=== PATIENT | male | born 1975 | race Caucasian/White ===

== ENCOUNTER → 2022-01-24 10:04 | Outpatient (BNVA) | payer OTHER, SELFPAY | PROVIDERS: PCP Nurse Practitioner Family; Visit Provider Urology | DX: N13.30 Unspecified hydronephrosis (principal) | CPT/HCPCS: 99202 ==

== ENCOUNTER → 2022-02-25 12:49 | Outpatient (REF) | payer OTHER, SELFPAY ==
--- NOTE | ~2022-02-25 | NM_ITS ---
EXAMINATION: RENAL DYNAMIC IMAGING STUDY WITH LASIX CLINICAL INFORMATION: Hydronephrosis. COMPARISON: No prior imaging studies are available for comparison. TECHNIQUE: Serial gamma scintillation camera images were obtained over the posterior trunk during the initial transit and subsequent distribution of a bolus intravenous injection of 10 mCi of Tc-99m DTPA. At 30 minutes later, 40 mg of Lasix was administered intravenously and an additional 25 minutes of images obtained. The post Lasix images were terminated slightly earlier than the usual 30 minutes post Lasix due to the patient's urgency to void. A post void image was also obtained. FINDINGS: Initial rapid sequence images show normal flow to the right kidney, but flow to the left kidney is moderately to markedly diminished. Subsequent sequential static images obtained up to 30 minutes show there is good concentration of activity in the right kidney but moderately to markedly diminished concentration in the left kidney. Excretory function is well visualized by 3 to 4 minutes post injection on the right and slightly later but is well visualized by 5 minutes post injection on the left. At 30 minutes postinjection there is good visualization of activity in the urinary bladder but moderate retention in the left renal collecting system is noted, predominantly in the calyces. A small amount of activity in the left renal pelvis is visualized at this time, however. There is only mild retention in the right kidney predominantly in an upper pole calyx. Following Lasix administration, there is prompt and complete washout from the right renal collecting system, but washout on the left is much slower and much less complete. At the end of the study moderate to marked retention in the left renal collecting system, predominantly calyceal is noted. There is good visualization of activity in the urinary bladder at the end of the study. The post void image shows significant emptying of the urinary bladder and also some washout from the left renal collecting system but diffuse retention in the left kidney persists on the post void image. The T-1/2 washout time following Lasix administration on the right is 3 minutes. A meaningful T-1/2 washout time on the left could not be calculated because of the minimal washout from this kidney during the duration of the dynamic images. The relative function of the two kidneys based on the 2-3 minute images are: Left 43% and right 57%. NM/NM renal flow w pharm int IMPRESSION: LEFT KIDNEY: Mildly to moderately impaired perfusion and function. Moderate hydronephrosis is present and this appears to be predominantly calyceal with minimal, if any, dilatation and retention in the left renal pelvis. This may be due to delayed flow from the calyces to the pelvis. High-grade and near-complete outflow obstruction is present. Correlation with anatomic imaging is recommended. RIGHT KIDNEY: Normal perfusion and function. No hydronephrosis or outflow obstruction.
== END ==
LOC: HO.NUCMED 12:49
PROVIDERS: Visit Provider Urology
DX: N13.30 Unspecified hydronephrosis (principal)
CPT/HCPCS: 78708; A9539; J1940

== ENCOUNTER 2022-06-16 12:00 | Day surgery (SDC) | payer OTHER, SELFPAY ==
--- NOTE | 2022-06-13 10:47 | HO.ANESPROP2 ---
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 Eloise Neal aware PMFSH Active Problems Active Problems: All Active Problems (Updated 04/09/22 @ 11:03 by Jolanta Parra, SYLVIA) Hydronephrosis (Acute) Past Medical History Medical History Bipolar disorder GERD (gastroesophageal reflux disease) History of abnormal electrocardiogram Hx: UTI (urinary tract infection) Knee pain, bilateral Seasonal allergies Surgical History Surgical History Hx of brain surgery Social History Social History Do you presently have visiting nurse or other home services: No Patient Tobacco Use Status: Current everyday Tobacco user Tobacco use type: Cigarette Cigarettes Per Day: 3 Use of substances other than those prescribed or required for medical reasons: Yes Substance Use Frequency: Daily Are you DNR?: No Advance Directives: No Advance Directives Information Provided: Yes Meds Allergies Allergy/AdvReac Type Severity Reaction Status Date / Time amoxicillin Allergy Intermediate hives, Verified 04/09/22 10:58 itching, rash Home Medications Medication Instructions Recorded Confirmed Last Taken Type cetirizine 10 mg tablet 10 mg PO DAILY 04/09/22 Unknown History cholecalciferol (vitamin D3) 50 50 mcg PO DAILY 04/09/22 Unknown History mcg (2,000 unit) capsule (Vitamin D3) divalproex 500 mg tablet,extended 3 tab PO BEDTIME 04/09/22 Unknown History release 24 hr mirtazapine 15 mg tablet 0.5 tab PO BEDTIME 04/09/22 Unknown History omeprazole 20 mg capsule,delayed 20 mg PO DAILY 04/09/22 Unknown History release Exam Exam Date and Time: June 13, 2022 1047 Pertinent Lab Results Pertinent Lab Results: BMP 02/2022 from outside facility Na 139 K 4.4 Cl 106 CO2 26 BUN 9 Creat 1.02 Assessment and Plan Assessment Anesthesia Assessment: Chart Reviewed Documented by User: Daniel Munguia MD 06/16/22 13:59 PMFSH Past Medical History Medical History Bipolar disorder GERD (gastroesophageal reflux disease) History of abnormal electrocardiogram Hx: UTI (urinary tract infection) Knee pain, bilateral Seasonal allergies Family History Family history of problems with anesthesia: No Surgical History Surgical History Hx of brain surgery History of Problems with Anesthesia: No Social History Social History Do you presently have visiting nurse or other home services: No Patient Tobacco Use Status: Current everyday Tobacco user Tobacco use type: Cigarette Cigarettes Per Day: 3 Use of substances other than those prescribed or required for medical reasons: Yes Substance Use Frequency: Daily Are you DNR?: No Advance Directives: No Advance Directives Information Provided: Yes Meds Allergies Allergy/AdvReac Type Severity Reaction Status Date / Time amoxicillin Allergy Intermediate hives, Verified 04/09/22 10:58 itching, rash Home Medications Medication Instructions Recorded Confirmed Last Taken Type cetirizine 10 mg tablet 10 mg PO DAILY 04/09/22 Unknown History cholecalciferol (vitamin D3) 50 50 mcg PO DAILY 04/09/22 Unknown History mcg (2,000 unit) capsule (Vitamin D3) divalproex 500 mg tablet,extended 3 tab PO BEDTIME 04/09/22 Unknown History release 24 hr mirtazapine 15 mg tablet 0.5 tab PO BEDTIME 04/09/22 Unknown History omeprazole 20 mg capsule,delayed 20 mg PO DAILY 04/09/22 Unknown History release Exam Airway Mallampati Class: I TM Dist: >3cm Neck ROM: Full Loose/Missing/Broken Teeth: No Heart: rrr Lungs: clear Assessment and Plan Final Anesthetic Review Family History of Problems with Anesthesia: No History of Problems with Anesthesia: No NPO: Yes ASA Class: II Final Preanesthetic Review: No Changes in Pt Med Stat, Meds/Allgs Chart Reviewed, Consent Obtained/Reviewed and Anes Risks/Benef Reviewed Patient Risk: Low Procedure Risk: Low Anesthetic Plan Anesthetic Plan: GA Disposition: Standard PACU
[2022-06-16] VITALS (7 sets, daily range): BP systolic 117–141; BP diastolic 75–90; PULSE 48–73; RESP 16; TEMP 36.6–36.7; O2SAT 98–100; BMI 25.1
--- NOTE | ~2022-06-16 | FL_ITS ---
EXAMINATION: XR FLUOROSCOPY WITH IMAGES CLINICAL INFORMATION: Hydronephrosis. COMPARISON: Nuclear medicine scan February 2022. TECHNIQUE: Fluoroscopy performed by Dr. Thang Kat. Fluoroscopy time: 77 seconds. Cumulative Dose: 16.4 mGy. Images: 4. FINDINGS: The right collecting system and visualized proximal ureter are normal. There is opacification of the left proximal ureter. Round and oval-shaped filling defects seen in the visualized left proximal ureter probably represent air bubbles. FL/FL guidance in OR IMPRESSION: Fluoroscopy guidance for bilateral retrograde exam.
[2022-06-16] MEDS: Lactated Ringers 1,000 ML 100 ML IVCONT (13:14)
--- NOTE | 2022-06-16 15:04 | P.OP_ITS ---
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 Secondary stricture approximately 3 cm distal to UPJ obliteration. Procedure: Bilateral retrograde, left ureteroscopy with laser of left ureter extraction. Unable to into or pass wire into left UPJ Surgeon: Dr Thang Kat Anesthesia: General Indications for procedure: Left hydronephrosis, delayed left Lasix renogram with over 40% function left side Procedure: After informed consent was verified the patient was brought to the operating room and placed in a supine position. Anesthesia was administered per protocol. The patient was placed in modified dorsal lithotomy position and prepped and draped in a sterile fashion. A safety pause time-out was performed. Laterality of procedure and antibiotics were confirmed, appropriate imaging was available A 22 K[place] cystoscope was introduced per urethra. No abnormality was noted of urethra or bladder. Both ureteric orifices were seen in a normal position. First the right ureter was cannulated retrograde examination was performed. Good flow seen into the right renal pelvis and good efflux seen on continuous fluoroscopy. Retrograde performed on the left side. Narrowing seen in mid portion of left ureter. Small tiny passage seen of dye into dilated left renal pelvis. A Sensor guidewire was placed. It was able to navigate the initial narrowing in the midportion of the left ureter. Unable to into left renal pelvis. Attempt to place wire with 0.35 angled Glidewire. This was unable to pass into the left renal pelvis. The Sensor guidewire was placed. The ureter was dilated with a [place] dilator. The flexible ureteral scope was unable replaced. Using the rigid ureteral scope this was passed alongside the wire. At the midp oint of the proximal 3rd ureter narrowing with obtained. Using a 365 holmium laser and soft tissue settings an incision was made in the stricture to enable passage of the ureteroscope. The obliterated UPJ was seen. New P to be a pinpoint hole. Attempts were made to pass a wire into the left renal pelvis directly however the wire once unable to be passed. Given the inability to pass wire into the left renal pelvis a decision made to remove the ureteral scope. And an outpatient left PCN will be required followed by evaluation for robotic reconstruction. The patient tolerated the procedure well and was transferred in a stable condition to the recovery area. Pathology: None seen Drains: Unable to place stent
[2022-06-16 16:17] LABS: Anion Gap 12 (12-20); Blood Urea Nitrogen 11 mg/dL (9-16); Calcium 8.9 mg/dL (8.4-10.2); Carbon Dioxide 28 mmol/L (22-29); Chloride 105 mmol/L (96-108); Creatinine Clr Calc Pharmacy 92.3; Estimated Glomerular Filt Rate > 60; Glucose Random 124 mg/dL (60-115); Potassium 4.8 mmol/L (3.3-5.1); Sodium 140 mmol/L (135-145)
== END 2022-06-16 16:06 | disposition home or self-care (01) ==
PROVIDERS: Visit Provider Urology
PROC: (CPT 52344; principal; 2022-06-16 13:50)
DX: N13.1 Hydronephrosis with ureteral stricture, not elsewhere classified (principal); N13.0 Hydronephrosis with ureteropelvic junction obstruction; Z87.440 Personal history of urinary (tract) infections; F31.9 Bipolar disorder, unspecified; K21.9 Gastro-esophageal reflux disease without esophagitis; J30.2 Other seasonal allergic rhinitis; F17.200 Nicotine dependence, unspecified, uncomplicated; Z79.899 Other long term (current) drug therapy; Z88.1 Allergy status to other antibiotic agents; Z98.890 Other specified postprocedural states
CPT/HCPCS: 52344; 36415; 80048; C1758; C1769; C1894; J1100; J1956; J2250; J2405; J3010; Q9965

== ENCOUNTER 2022-06-23 12:12 | Day surgery (SDC) | payer OTHER, SELFPAY ==
--- NOTE | ~2022-06-23 | IR_ITS ---
PROCEDURE: FLUOROSCOPY NEPHROSTOGRAM CLINICAL INFORMATION: Left hydronephrosis. COMPARISON: Previous retrograde exam 06/16/2022 and nuclear medicine renal scan February 2022. TECHNIQUE: Procedure and risks and benefits including bleeding, infection and injury to the kidney were discussed with the patient and informed consent was obtained. The patient was positioned in the prone position. The left flank was prepped and draped in the usual sterile fashion. The skin and soft tissues were anesthetized with 1% lidocaine plain. Using ultrasound guidance and a 22-gauge Chiba needle, left lower pole calyceal access was obtained. Over a 0.018 wire, a Chiba needle was exchanged for a 6 [place] AccuStick system. Over a 0.035 guidewire, AccuStick system was exchanged for an 8.5 [place] pigtail drainage catheter. This is positioned in the dilated left lower pole calyx. The patient received Versed 2 mg and fentanyl 100 mcg intravenously during the procedure. Total sedation time was 18 minutes. Conscious sedation was provided by registered nurse under my direct supervision. FINDINGS: There is severe left hydronephrosis. No contrast in the left ureter is seen. FLUOROSCOPY TIME: 1.8 minutes DOSE AREA PRODUCT: 176 cGy-cm2 IR/IR nephrostomy IMPRESSION: Left nephrostomy tube placement.
[2022-06-23 12:54] VITALS: BMI 24.4
[2022-06-23 13:25] LABS: MANUAL DIFF FLAG NO
[2022-06-23 13:29] LABS: Basophils Percent Auto 0.4 % (0-2); Eosinophils Percent Auto 0.4 % (0-4); Hematocrit 38.8 % (42.0-52.0); Hemoglobin 13.5 g/dl (14.0-18.0); Imm Gran Abs Auto 0.04 X10*3/uL (0.00-0.03); Imm Gran Pct Auto 0.5 % (0.0-0.4); Lymphocytes Absolute Auto 1.6 X10*3/uL (1.2-4.9); Lymphocytes Percent Auto 20.5 % (20-40); Mean Corpuscular HGB Conc 34.8 g/dl (31.0-36.0); Mean Corpuscular Volume 94.9 fL (80.0-98.0); Mean Platelet Volume 10.4 fL (9.4-12.4); Monocytes Absolute Auto 0.8 X10*3/uL (0.1-1.2); Monocytes Percent Auto 11.1 % (2-11); Neutrophils Absolute Auto 5.1 x10*3/uL (2.0-8.3); Neutrophils Percent Auto 67.1 % (45-73); Platelet Count 208 X10*3/uL (160-400); Red Blood Count 4.09 X10*6/uL (4.60-5.80); Red Cell Distribution Width 12.9 % (11.0-16.0); White Blood Count 7.6 X10*3/uL (4.8-10.8)
[2022-06-23 13:36] LABS: INTERNATIONAL NORM RATIO 1.1 (0.9-1.1); Prothrombin Time 12.2 SEC (10.0-13.1)
[2022-06-23 13:38] LABS: Partial Thromboplastin Time 33.7 SEC (26.0-36.4)
--- NOTE | 2022-06-23 15:54 | HO.RADPN ---
RADIOLOGY Narrative Narrative: Left 8.5 fr nephrostomy tube placed. Urine sent for culture and cytology.
[2022-06-23 16:00] VITALS: BP 115/76; PULSE 63; RESP 14; TEMP 37.4; O2SAT 97
[2022-06-23 16:07] LABS: Urine Cytology See Pathology rpt
[2022-06-23 16:14] LABS: Appearance Urine Cloudy; Color Urine Yellow; Glucose Urine UA Negative (Negative); Leukocyte Esterase Urine Moderate (2+) (Negative); Nitrite Urine Negative (Negative); UMIC TRIGGER UACC YES; Urine Blood Large (3+) (Negative); Urine Ketones Negative (Negative); Urine Protein Negative (Neg-Trace)
[2022-06-23 16:15] VITALS: BP 129/90; PULSE 78; RESP 16; O2SAT 100
[2022-06-23 16:17] LABS: Bacteria Urine None Seen (None Seen); Hyaline Casts Urine 0-2 /LPF (0-2); RBC Urine >20 /HPF (0-2); Squamous Epithelial Cell Urine 0-2 /HPF (0-2); UACC Culture Trigger YES
[2022-06-23 16:30] VITALS: BP 123/85; PULSE 68; RESP 16; O2SAT 100
[2022-06-23 17:00] VITALS: BP 127/74; PULSE 69; RESP 16; O2SAT 100
[2022-06-23 17:30] VITALS: BP 123/83; PULSE 64; RESP 18; TEMP 37.4; O2SAT 100
== END 2022-06-23 17:37 | disposition home or self-care (01) ==
PROVIDERS: Visit Provider Radiology Diagnostic Radiology
DX: N13.30 Unspecified hydronephrosis (principal); Z87.440 Personal history of urinary (tract) infections; Z98.890 Other specified postprocedural states; Z88.1 Allergy status to other antibiotic agents
CPT/HCPCS: 36415; 50432; 81001; 85025; 85610; 85730; 87086; 88112; J2250; J3010; Q9967

== ENCOUNTER → 2022-06-25 14:16 | Outpatient (BNVA) | payer OTHER, SELFPAY | PROVIDERS: Visit Provider Urology | DX: N13.1 Hydronephrosis with ureteral stricture, not elsewhere classified (principal) | CPT/HCPCS: 99212 ==

== ENCOUNTER → 2022-08-22 12:25 | Outpatient (BNVA) | payer OTHER, SELFPAY | PROVIDERS: Visit Provider Urology | DX: N13.5 Crossing vessel and stricture of ureter without hydronephrosis (principal); N13.30 Unspecified hydronephrosis | CPT/HCPCS: 99212 ==

== ENCOUNTER → 2022-09-04 12:52 | Outpatient (REF) | payer OTHER, SELFPAY ==
--- NOTE | ~2022-09-04 | NM_ITS ---
EXAMINATION: RENAL DYNAMIC IMAGING STUDY WITH LASIX CLINICAL INFORMATION: Hydronephrosis. COMPARISON: The previous study dated 02/25/2022 is available for comparison. TECHNIQUE: Serial gamma scintillation camera images were obtained over the posterior trunk during the initial transit and subsequent distribution of a bolus intravenous injection of 10 mCi of Tc-99m DTPA. At 30 minutes later, 40 mg of Lasix was administered intravenously and an additional 30 minutes of images obtained. FINDINGS: Initial rapid sequence images show normal flow to the right kidney, but there is moderately severe decrease flow to the left kidney. Subsequent sequential static images obtained up to 30 minutes show good concentration in the right kidney but moderately diminished concentration in the left kidney. Excretory function is visualized bilaterally by 3 minutes post injection, but this is much more intense on the right. At 30 minutes postinjection is good visualization of activity in the urinary bladder and almost complete clearance of activity from the right renal collecting system. There is moderate diffuse retention in the left kidney which is predominantly in the calyces. At this time the left renal pelvis has not yet visualized. Following Lasix administration, there is continued clearance of activity from the right kidney. Calyceal activity in the left progresses into the pelvis and there is subsequently some washout from the left renal collecting system. However at the end of the study there is moderately severe retention in the left renal calyces, although only minimal retention in the left renal pelvis is present at this time The T-1/2 washout times following Lasix administration are: Left 32 minutes and right 5 minutes. The relative function of the two kidneys based on the 2-3 minute images are: Left 39% and right 61%. Compared to the previous study dated 02/25/2022, there has been improvement in the washout of the left kidney, which on the previous study was not visualized during the duration of the study. The relative function of the left kidney has slightly deteriorated since the prior study, although the mild change is probably not clinically significant. Previously the relative function was 43% on the left and 57% on the right. NM/NM renal flow w pharm int IMPRESSION: LEFT KIDNEY: There is moderately diminished perfusion and function. Moderate hydronephrosis with moderately severe partial outflow obstruction, probably at the ureteropelvic junction. Significant caliectasis is present as well as moderate dilatation of the left renal pelvis. There has been an improvement in washout of this kidney since the 02/25/2022 study, and the relative function compared to the right is similar. RIGHT KIDNEY: Normal perfusion and function. No hydronephrosis or outflow obstruction.
== END ==
LOC: HO.NUCMED 12:52
PROVIDERS: Visit Provider Urology
DX: N13.30 Unspecified hydronephrosis (principal)
CPT/HCPCS: 78708; A9539; J1940

== ENCOUNTER → 2022-09-19 15:02 | Outpatient (BNVA) | payer OTHER, SELFPAY | PROVIDERS: PCP Family Medicine; Visit Provider Urology | DX: Z13.89 Encounter for screening for other disorder (principal) ==

== ENCOUNTER 2022-10-14 11:55 | Day surgery (SDC) | payer OTHER, SELFPAY ==
--- NOTE | ~2022-10-14 | IR_ITS ---
EXAMINATION: FL FLUOROSCOPY NEPHROSTOGRAM CLINICAL INFORMATION: UPJ obstruction. Nephrostomy tube change. COMPARISON: Nephrostomy tube placement 06/23/2022. TECHNIQUE: Procedure and risks and benefits including bleeding, infection and injury to the kidney were discussed with the patient and informed consent was obtained. The patient was positioned in the prone position. The left flank and existing nephrostomy tube were prepped and draped in usual sterile fashion. The nephrostomy tube was injected with contrast and nephrostogram performed. A 0.035 guidewire was advanced through the existing nephrostomy tube. Nephrostomy tube was exchanged for a new 8.5 [place] pigtail nephrostomy tube. Patient received Versed 1 mg and fentanyl 50 mcg intravenously during the procedure. Total sedation time 20 minutes. Conscious sedation was provided by registered nurse under my direct supervision with continuous hemodynamic monitoring. [id number] time was 20 minutes. TOTAL SEDATION TIME: 20 minutes. FINDINGS: There is a left nephrostomy tube. Initial nephrostogram demonstrated the existing nephrostogram coiled in a perinephric collection communicating with the collecting system/lower pole calyx. Final images demonstrate a nephrostomy tube with pigtail coiled in the renal pelvis and [id number] hydronephrosis. FLUOROSCOPY TIME: 3.6 minutes. DLP: 294 cGy-cm2 8 saved fluoroscopic images IR/IR nephrostomy tube change IMPRESSION: Left nephrostomy tube exchange.
[2022-10-14 12:19] VITALS: BMI 24.5
[2022-10-14 12:27] LABS: MANUAL DIFF FLAG NO
[2022-10-14 12:30] LABS: Basophils Absolute Auto 0.1 X10*3/uL (0.0-0.2); Basophils Percent Auto 0.8 % (0-2); Eosinophils Percent Auto 0.6 % (0-4); Hematocrit 43.9 % (42.0-52.0); Hemoglobin 14.8 g/dl (14.0-18.0); Imm Gran Abs Auto 0.03 X10*3/uL (0.00-0.03); Imm Gran Pct Auto 0.5 % (0.0-0.4); Lymphocytes Absolute Auto 1.5 X10*3/uL (1.2-4.9); Lymphocytes Percent Auto 23.1 % (20-40); Mean Corpuscular HGB Conc 33.7 g/dl (31.0-36.0); Mean Corpuscular Volume 97.8 fL (80.0-98.0); Monocytes Absolute Auto 0.6 X10*3/uL (0.1-1.2); Monocytes Percent Auto 8.6 % (2-11); Neutrophils Absolute Auto 4.3 x10*3/uL (2.0-8.3); Neutrophils Percent Auto 66.4 % (45-73); Platelet Count 241 X10*3/uL (160-400); Red Blood Count 4.49 X10*6/uL (4.60-5.80); Red Cell Distribution Width 12.5 % (11.0-16.0); White Blood Count 6.5 X10*3/uL (4.8-10.8)
[2022-10-14 12:36] LABS: Prothrombin Time 11.4 SEC (10.0-13.1)
[2022-10-14 12:39] LABS: Partial Thromboplastin Time 39.4 SEC (26.0-36.4)
--- NOTE | 2022-10-14 14:42 | HO.RADPN ---
RADIOLOGY Narrative Narrative: Left nephrostomy tube changed over a wire for a new 8.5 fr nephrostomy tube
[2022-10-14 14:58] VITALS: BP 117/72; PULSE 55; RESP 14; TEMP 36.6; O2SAT 99
[2022-10-14 15:13] VITALS: BP 120/78; PULSE 60; RESP 12; O2SAT 99
[2022-10-14 15:28] VITALS: BP 130/76; PULSE 61; RESP 14; O2SAT 100
[2022-10-14 15:43] VITALS: BP 114/69; PULSE 64; RESP 12; O2SAT 100
== END 2022-10-14 16:03 | disposition home or self-care (01) ==
PROVIDERS: Radiology Diagnostic Radiology; Visit Provider Urology
DX: N13.5 Crossing vessel and stricture of ureter without hydronephrosis (principal); N13.30 Unspecified hydronephrosis; Z87.440 Personal history of urinary (tract) infections; J30.2 Other seasonal allergic rhinitis; K21.9 Gastro-esophageal reflux disease without esophagitis; F31.9 Bipolar disorder, unspecified; Z79.899 Other long term (current) drug therapy; Z88.1 Allergy status to other antibiotic agents; F17.210 Nicotine dependence, cigarettes, uncomplicated
CPT/HCPCS: 36415; 50435; 85025; 85610; 85730; 99152; J2250; J3010; Q9967